=== PATIENT | female | born 1975 | race Caucasian/White ===

== ENCOUNTER 2017-07-09 17:51 | Inpatient (IN) | payer BC ==
[2017-07-09] MEDS ORDERED: ONDANSETRON 4 MG/2 ML VIAL IVP STA (18:22)
[2017-07-09] MEDS ORDERED: RX INFO: IV CONTRAST WAS GIVEN 1 EACH MISC MISCELLANE PRN (18:22)
[2017-07-09] MEDS ORDERED: SODIUM CHLORIDE 0.9% 1,000 ML IV STA (18:22)
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
[2017-07-09] MEDS: SODIUM CHLORIDE 0.9% 1,000 ML IV STA (18:40)
[2017-07-09 18:52] LABS: Basophils # (A) 0.1 k/uL (0-0.2); Basophils % (A) 0 %; CH 31.3; CHCM 33.2; Eosinophils # (A) 0.1 k/uL (0-0.7); Eosinophils % (A) 1 %; HCT 43.9 % (34.0-46.0); HDW 2.19; Luc # (Auto) 0.22; Luc % (Auto) 2; Lymphocytes % (A) 15 %; MCH 32.4 pg (25.0-35.0); MCHC 34.2 g/dL (31.0-37.0); MCV 94.6 fL (80.0-100.0); Mean Platelet Volume 8.5; Monocytes # (A) 0.7 k/uL (0-1.0); Monocytes % (A) 5 %; Neutrophils # (A) 10.4 k/uL (1.3-7.7); Neutrophils % (A) 77 %; RBC 4.64 m/uL (3.80-5.40); RDW 11.9 % (11.5-15.5); WBC 13.5 k/uL (3.8-10.6); WBC (Perox) 12.85
[2017-07-09 18:57] LABS: Appearance,Urine Cloudy (Clear); Bacteria,Urine Occasional /hpf; Bilirubin,Urine Negative (Negative); Glucose,Urine (UA) Negative (Negative); Ketones,Urine 1+ (Negative); Leukocyte Esterase,Urine Small (Negative); Mucus,Urine Occasional /hpf; Nitrite,Urine Negative (Negative); PH, Urine 5.5 (5.0-8.0); Particle Count 8039; Protein,Urine Negative (Negative); RBC,Urine 7 /hpf (0-5); Specific Gravity,Urine 1.019 (1.001-1.035); Squamous Epithelial Cell,Urine 3 /hpf (0-4); UA Billing (MACRO vs. MICRO) MICRO; WBC,Urine 1 /hpf (0-5)
[2017-07-09 19:00] LABS: ALT 44 U/L (9-52); AST 28 U/L (14-36); Alkaline Phosphatase 103 U/L (38-126); Amylase 49 U/L (30-110); Anion Gap 13 mmol/L; Blood Urea Nitrogen 11 mg/dL (7-17); Calcium 9.5 mg/dL (8.4-10.2); Carbon Dioxide 25 mmol/L (22-30); Chloride 100 mmol/L (98-107); Glucose 95 mg/dL (74-99); Non-African American GFR(MDRD) >60 (>60 ml/min/1.73 sqM); Potassium 4.1 mmol/L (3.5-5.1); Sodium 138 mmol/L (137-145); Total Protein 8.1 g/dL (6.3-8.2)
[2017-07-09 19:11] LABS: INR 1.1 (<1.2); Partial Thromboplastin Time 25.6 sec (22.0-30.0); Prothrombin Time 10.7 sec (9.0-12.0)
--- NOTE | 2017-07-09 19:47 | CT ---
EXAMINATION TYPE: CT abdomen pelvis w con DATE OF EXAM: 07/09/2017 COMPARISON: 11/25/2012 HISTORY: Right side abdominal pain [address] DLP: 385.6 mGycm. Automated exposure control for dose reduction was used. TECHNIQUE: Helical acquisition of images was performed from the lung bases through the pelvis. CONTRAST: Performed without Oral Contrast and with IV Contrast, patient injected with 100 mL of Omnip aque 300. FINDINGS: VISUALIZED SUPRADIAPHRAGMATIC STRUCTURES: No significant abnormality is appreciated. LIVER/GB: On the prior study in the lower posterior segment of the right hepatic lobe there was a sim ple appearing 3.1 cm mean diameter hepatic cyst. Since the prior study this cyst appears to have grow n considerably, with current greatest dimensions 7.5 cm AP x 7.0 cm CC x 6.5 cm transverse. This grow th is accompanied with stretching of the liver capsule inferomedially, and this can correlate with th e patient's symptoms. Would suggest correlation with liver enzymes and with CBC with differential. Th ere are a few scattered subcentimeter simple appearing cysts, but these were seen on the prior study. There are no kavita solid liver lesions. PANCREAS: No significant abnormality is seen. SPLEEN: No significant abnormality is seen. ADRENALS: No significant abnormality is seen. KIDNEYS: No significant abnormality is seen. FREE AIR: No free air is visualized. RETROPERITONEAL ADENOPATHY: None visualized REPRODUCTIVE ORGANS: There is prominence to the endometrial cavity and to the uterine cervix. These a re nonspecific CT findings but can be further characterized with 2 or 6 week follow up pelvic ultraso und. No other reproductive organ findings. URINARY BLADDER: No significant abnormality is seen. PELVIC ADENOPATHY: None visualized. OSSEOUS STRUCTURES: No significant abnormality is seen. BOWEL: No significant abnormality is seen. OTHER: Vasculature is unremarkable. IMPRESSION: 1. PROMINENT HEPATIC CYST GROWTH SINCE THE PRIOR STUDY, NOW ACCOMPANIED WITH STRETCHING OF THE LIVER CAPSULE. THIS IS THE LIKELY CT CORRELATE FOR THE PATIENT'S SYMPTOMS. 2. Incidental findings: Uterine cervix and endometrial prominence as discussed.
[2017-07-09] MEDS ORDERED: metroNIDAZOLE-NS PMX 500 MG in SALINE 1 100ML.BAG IVPB STA (20:28)
[2017-07-09] MEDS ORDERED: LEVOFLOXACIN 750MG-D5W PMX 750 MG in DEXTROSE/WATER 1 150ML.BAG IVPB STA (20:28)
[2017-07-09] MEDS ORDERED: NALOXONE 0.4 MG/ML 1 ML VIAL IV PRN (20:30)
[2017-07-09] MEDS ORDERED: ACETAMINOPHEN TAB 325 MG TAB PO PRN (20:30)
[2017-07-09] MEDS ORDERED: HYDROcodone/APAP 5-325MG 1 EACH TAB PO PRN (20:30)
[2017-07-09] MEDS ORDERED: ONDANSETRON 4 MG/2 ML VIAL IVP PRN (20:30)
[2017-07-09] MEDS: HYDROmorphone 1 MG/ML 1 ML SYRINGE IV PRN (21:32)
[2017-07-10] MEDS: HYDROmorphone 1 MG/ML 1 ML SYRINGE IV PRN ×2 (02:10→09:02)
[2017-07-10] MEDS: SODIUM CHLORIDE 0.9% 1,000 ML IV STA ×2 (02:11→13:13)
[2017-07-10] MEDS: metroNIDAZOLE-NS PMX 500 MG in SALINE 1 100ML.BAG IVPB SCH ×2 (08:50→21:42)
[2017-07-10] MEDS: PANTOPRAZOLE 40 MG/10 ML VIAL IV SCH (08:50)
[2017-07-10] MEDS: ACETAMINOPHEN TAB 325 MG TAB PO PRN ×2 (13:25→21:38)
[2017-07-10] MEDS ORDERED: SODIUM CHLORIDE 0.9% 1,000 ML IV SCH (13:30)
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
[2017-07-10 14:22] LABS: Basophils % (A) 1 %; CH 32.3; CHCM 33.4; Eosinophils % (A) 0 %; HCT 37.6 % (34.0-46.0); HGB 12.4 gm/dL (11.4-16.0); Luc # (Auto) 0.16; Luc % (Auto) 2; Lymphocytes # (A) 1.6 k/uL (1.0-4.8); Lymphocytes % (A) 19 %; MCH 32.1 pg (25.0-35.0); MCHC 33.1 g/dL (31.0-37.0); Mean Platelet Volume 9.6; Monocytes # (A) 0.6 k/uL (0-1.0); Monocytes % (A) 7 %; Neutrophils # (A) 5.7 k/uL (1.3-7.7); Neutrophils % (A) 70 %; RBC 3.88 m/uL (3.80-5.40); RDW 12.2 % (11.5-15.5); WBC 8.1 k/uL (3.8-10.6); WBC (Perox) 8.56
[2017-07-10 14:33] LABS: ALT 36 U/L (9-52); AST 15 U/L (14-36); Alkaline Phosphatase 71 U/L (38-126); Anion Gap 5 mmol/L; Blood Urea Nitrogen 7 mg/dL (7-17); Calcium 8.2 mg/dL (8.4-10.2); Carbon Dioxide 26 mmol/L (22-30); Chloride 107 mmol/L (98-107); Glucose 80 mg/dL (74-99); Non-African American GFR(MDRD) >60 (>60 ml/min/1.73 sqM); Potassium 4.2 mmol/L (3.5-5.1); Sodium 138 mmol/L (137-145); Total Bilirubin 0.9 mg/dL (0.2-1.3); Total Protein 5.6 g/dL (6.3-8.2)
--- NOTE | 2017-07-10 15:19 | US ---
EXAMINATION TYPE: US liver DATE OF EXAM: 07/10/2017 COMPARISON: CT abdomen pelvis 07/09/2017 CLINICAL HISTORY: Persistent right upper quadrant pain. Fractured right 7th rib EXAM MEASUREMENTS: Liver Length: 17.9 cm Gallbladder Wall: 0.2 cm CBD: 0.3 cm Right Kidney: 11.7 x 5.3 x 5.4 cm Pancreas: Obscured by bowel gas Liver: Large (6.6 x 5.3 x 5.4 cm) irregularly shaped cyst correlates with CT findings. Gallbladder s hows no stone or wall thickening CBD: wnl Right Kidney: No hydronephrosis or masses seen and cortical medullary differentiation is maintained, no pathologic calcification There is no ascites IMPRESSION: Large liver cyst is present in the liver is likely incompletely evaluated due to pain fro m patient's known fractures of the seventh and eighth ribs anteriorly. Exam is somewhat limited.
[2017-07-10 17:04] LABS: Appearance,Urine Clear (Clear); Bilirubin,Urine Negative (Negative); Glucose,Urine (UA) Negative (Negative); Ketones,Urine 2+ (Negative); Leukocyte Esterase,Urine Small (Negative); Mucus,Urine Rare /hpf; Nitrite,Urine Negative (Negative); PH, Urine 5.5 (5.0-8.0); Particle Count 7857; Protein,Urine Negative (Negative); RBC,Urine 4 /hpf (0-5); Specific Gravity,Urine 1.011 (1.001-1.035); Squamous Epithelial Cell,Urine 3 /hpf (0-4); UA Billing (MACRO vs. MICRO) MICRO; WBC,Urine 1 /hpf (0-5)
[2017-07-10] MEDS ORDERED: LEVOFLOXACIN 750MG-D5W PMX 750 MG in DEXTROSE/WATER 1 150ML.BAG IVPB SCH (21:00)
[2017-07-11 07:54] VITALS: BP 101/48; PULSE 73; RESP 19; TEMP 99.3
[2017-07-11] MEDS: PANTOPRAZOLE 40 MG/10 ML VIAL IV SCH (08:34)
[2017-07-11] MEDS: metroNIDAZOLE-NS PMX 500 MG in SALINE 1 100ML.BAG IVPB SCH (08:35)
[2017-07-11] MEDS: ACETAMINOPHEN TAB 325 MG TAB PO PRN (08:39)
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
== END 2017-07-11 12:30 | disposition home or self-care (01) | DRG 872 ==
LOC: EC 17:51 → 6PED 20:30
PROVIDERS: ADMIT Surgery; ATTEND Surgery
DX: A41.9 Sepsis, unspecified organism (principal); N39.0 Urinary tract infection, site not specified; S22.31XA Fracture of one rib, right side, initial encounter for closed fracture; K76.89 Other specified diseases of liver; F17.200 Nicotine dependence, unspecified, uncomplicated; W17.89XA Other fall from one level to another, initial encounter; Y92.838 Other recreation area as the place of occurrence of the external cause
CPT/HCPCS: 36415; 74177; 76705; 80053; 81001; 82150; 83690; 85025; 85610; 85730; 87086; 96361; 96374; 96375; 99285

== ENCOUNTER → 2018-03-05 | Outpatient (CLI) | payer BC ==
--- NOTE | 2018-03-05 14:48 | US ---
EXAMINATION TYPE: US abdomen complete DATE OF EXAM: 03/05/2018 COMPARISON: 07/10/2017 CLINICAL HISTORY: 42-year-old female R10.13 Epigastric Pain, Q44.6 Liver Cyst. Has not eaten in 2 day s due to epigastric pain, known liver cyst Technique: Multiple sonographic images of the abdomen are obtained. FINDINGS: Liver Length: 15.6 cm Gallbladder Wall: 0.2 cm CBD: 0.4 cm Spleen: 9.4 cm Right Kidney: 10.0 x 5.0 x 4.8 cm Left Kidney: 11.5 x 4.5 x 4.6 cm Pancreas: wnl Liver: 3.0cm cyst near mary hepatis appears stable from previous exam Gallbladder: wnl Evidence for sonographic Garcia's sign: no CBD: wnl Spleen: wnl Right Kidney: wnl Left Kidney: wnl Upper IVC: wnl Abd Aorta: wnl *tech impressions relayed to office of liver cyst size and otherwise negative findings IMPRESSION: 1. Mary hepatic liver cyst redemonstrated currently measuring 3.0 cm versus 6.6 cm on 07/10/2017. 2. Otherwise, unremarkable sonographic examination of the abdomen.
== END | disposition home or self-care (01) ==
LOC: RADUSWWP 13:40
PROVIDERS: ATTEND Family Medicine
DX: K76.89 Other specified diseases of liver (principal)
CPT/HCPCS: 76700